=== PATIENT | male | born 1960 | race African-American/Black ===

== ENCOUNTER 2019-10-25 18:26 | Emergency (ER) | payer OTHER ==
--- NOTE | 2019-10-25 19:10 | ER Document Report ---
ED General - General Chief Complaint: Psych Problem Stated Complaint: DEPRESSION Time Seen by Provider: 10/25/19 18:51 TRAVEL OUTSIDE OF THE [place] IN LAST 30 DAYS: No - HPI Notes: Mr. Castañeda is a 58-year-old male presenting with a chief complaint of hopelessness and depression with suicidal ideation. Patient was seen earlier today at the [place] clinic and sent here under IVC petition taken out by them. This man is a [employer] with honorable discharge in the past. He reports a history of PTSD related to being accused of contributing to delinquency of a minor many years ago. His marriage of 30 years is currently in trouble. He is experiencing insomnia and difficulty concentrating. Patient has had thoughts about shooting himself. He has access to a firearm. Patient says he has had some visual hallucinations of people running across the room periodically. He denies any auditory hallucinations. He denies abuse of alcohol but says he does occasionally smoke marijuana. He admits that he used cocaine about 3 to 4 weeks ago but says he does not regularly abuse drugs. He denies any prior inpatient psychiatric admissions. Patient says he is somewhat anxious that the police are talking about him related to his prior legal charges. He denies any homicidal ideation. Pertinent prior history: History of hypertension. History of hyperlipidemia. Past history of CA prostate. Previous surgery for this. 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 HENT: Negative for sore throat. Eyes: Negative for visual changes. Cardiovascular: Negative for chest pain. Respiratory: Negative for shortness of breath. Gastrointestinal: Negative for abdominal pain, vomiting or diarrhea. Genitourinary: Negative for dysuria. Musculoskeletal: Negative for back pain. Skin: Negative for rash. Neurological: Negative for headaches, weakness or numbness. 10 point ROS negative except as marked above and in HPI. Physical Exam - Notes Notes: GENERAL: Well-developed well-nourished appearing in no acute distress. SKIN: Good turgor no rashes. HEAD: Normocephalic atraumatic. EYES: PERRLA. EOMI. Conjunctivae and sclerae clear. EARS: CANALS AND TMS CLEAR. NOSE: CLEAR. MOUTH: Moist mucosa. Good dentition. No stridor or edema. No drooling. NECK: Supple. No masses or thyromegaly. No adenopathy. Carotids 2+ without bruits. No JVD. BACK: Symmetrical without tenderness. CHEST: Respirations unlabored. Breath sounds clear and symmetrical. HEART: Regular rhythm. No murmur gallop or rub. ABDOMEN: Soft nontender without masses, organomegaly or rebound. Bowel sounds normally active. No bruits. GENITALIA: Deferred. EXTREMITIES: No edema. No calf tenderness. Cap refill less than 1.5 seconds. Dorsalis pedis and posterior tibial pulses 3+ and symmetrical. NEUROLOGICAL: GCS 15. Alert and oriented x3. Normal gait. Fluent speech. C ranial nerves II through XII intact. Sensorimotor and cerebellar normal. Normal tone. PSYCHIATRIC: Very flat affect and intermittently tearful Course - Re-evaluation Re-evalutation: 10/25/19 19:11 Patient is to remain under IVC at this time. We will obtain routine lab studies for medical clearance although I do not see any obvious acute medical issues with this gentleman. - Laboratory Result Diagrams: 10/25/19 19:00 10/25/19 19:00 Laboratory results interpreted by me: 10/25/19 10/25/19 10/25/19 18:45 19:00 19:00 WBC 14.7 H RDW 16.3 H Absolute Neuts (auto) 10.6 H Urine Blood MODERATE H Salicylates < 1.0 L Acetaminophen < 10 L Discharge - Discharge Clinical Impression: Suicidal ideation, Major depression with psychotic features, PTSD (post- traumatic stress disorder) Disposition: PSYCH HOSP/UNIT
[2019-10-25 19:47] LABS: ABSOLUTE EOSINOPHILS # (AUTO) 0.1 10^3/uL (0.0-0.6); ABSOLUTE LYMPHOCYTES (AUTO) 2.8 10^3/uL (0.5-4.7); ABSOLUTE MONOCYTES (AUTO) 1.1 10^3/uL (0.1-1.4); ABSOLUTE NEUT (AUTO) 10.6 10^3/uL (1.7-8.2); BASOPHILS % (AUTO) 0.3 % (0-2); EOSINOPHILS % (AUTO) 0.5 % (0-6); HEMATOCRIT 45.7 % (37.9-51.0); HEMOGLOBIN 15.3 g/dL (13.5-17.0); LYMPHOCYTES % (AUTO) 19.3 % (13-45); MEAN CORPUSCULAR HEMOGLOBIN 28.7 pg (27.0-33.4); MEAN CORPUSCULAR HGB CONC 33.5 g/dL (32.0-36.0); MEAN CORPUSCULAR VOLUME 86 fl (80-97); MONOCYTES % (AUTO) 7.6 % (3-13); PLATELET COUNT 278 10^3/uL (150-450); RED BLOOD COUNT 5.35 10^6/uL (4.35-5.55); RED CELL DISTRIBUTION WIDTH 16.3 % (11.5-14.0); SEGMENTED NEUTROPHILS % (AUTO) 72.3 % (42-78); TOTAL CELLS COUNTED % (AUTO) 100 %; WHITE BLOOD COUNT 14.7 10^3/uL (4.0-10.5)
[2019-10-25 20:06] LABS: ALBUMIN 4.7 g/dL (3.5-5.0); ALKALINE PHOSPHATASE 100 U/L (38-126); ANION GAP 12 (5-19); ASPARTATE AMINO TRANSFERASE 34 U/L (17-59); BILIRUBIN,DIRECT 0.1 mg/dL (0.0-0.4); BILIRUBIN,TOTAL 0.5 mg/dL (0.2-1.3); BLOOD UREA NITROGEN 16 mg/dL (7-20); CALCIUM 9.9 mg/dL (8.4-10.2); CARBON DIOXIDE 26 mmol/L (22-30); CHLORIDE 102 mmol/L (98-107); GLUCOSE 79 mg/dL (75-110); POTASSIUM 3.8 mmol/L (3.6-5.0); TOTAL PROTEIN 8.1 g/dL (6.3-8.2)
[2019-10-25 20:10] LABS: ACETAMINOPHEN < 10 ug/mL (10-30); ALCOHOL < 10 mg/dL (NONE DETECTED); SALICYLATE < 1.0 mg/dL (2.0-20.0)
[2019-10-25 20:11] LABS: APPEARANCE,URINE CLEAR; BILIRUBIN,URINE NEGATIVE (NEGATIVE); COLOR,URINE YELLOW; GLUCOSE, URINE NEGATIVE (NEGATIVE); KETONES,URINE NEGATIVE (NEGATIVE); LEUKOCYTE ESTERASE,URINE NEGATIVE (NEGATIVE); NITRITE,URINE NEGATIVE (NEGATIVE); PROTEIN,URINE NEGATIVE (NEGATIVE); URINE SPECIFIC GRAVITY 1.023; UROBILINOGEN,URINE NEGATIVE mg/dL (<2.0)
[2019-10-25 20:20] LABS: URINE AMPHETAMINES SCREEN NEGATIVE; URINE BARBITURATES SCREEN NEGATIVE; URINE BENZODIAZEPINES SCREEN NEGATIVE; URINE COCAINE SCREEN NEGATIVE; URINE METHADONE SCREEN NEGATIVE; URINE PHENCYCLIDINE SCREEN NEGATIVE
[2019-10-25 20:21] LABS: URINE MARIJUANA (THC) SCREEN UNCONFIRMED POSITIVE
--- NOTE | 2019-10-25 22:27 | EKG REPORT ---
SEVERITY:- ABNORMAL ECG - SINUS RHYTHM REPOL ABNRM, PROBABLE ISCHEMIA, DIFFUSE LEADS : Confirmed by: Masha Vázquez MD 25-Oct-2019 22:27:03
[2019-10-26] MEDS ORDERED: ZOLPIDEM TARTRATE 5 MG TABLET PO ONE (02:50)
--- NOTE | 2019-10-26 10:34 | ER Document Report ---
Doctor's Note Notes: Chart reviewed, patient medically cleared. Patient remains on IVC petition. Currently awaiting psych recommendation and disposition.
[2019-10-26] MEDS ORDERED: NAPROXEN 250 MG TABLET PO PRN (14:00)
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
[2019-10-26] MEDS: LOSARTAN POTASSIUM 50 MG TABLET PO SCH (16:12)
[2019-10-26] MEDS: HYDROCHLOROTHIAZIDE 25 MG TABLET PO SCH (16:12)
[2019-10-26] MEDS: AMLODIPINE BESYLATE 10 MG TABLET PO SCH (16:12)
[2019-10-26] MEDS: METOPROLOL SUCCINATE 25 MG TAB.SR.24H PO SCH (16:13)
[2019-10-26] MEDS: ASPIRIN 81 MG TABLET, ENT COATED PO SCH (16:13)
[2019-10-26] MEDS: NICOTINE 7 MG/24 HR PATCH.TD24 TD SCH (16:14)
[2019-10-26] MEDS ORDERED: (PENDING PHARMACY ID) (Naproxen [Naproxen] 500 MG) PO SCH (18:00)
[2019-10-26] MEDS: FUROSEMIDE 20 MG TABLET PO SCH (19:31)
[2019-10-26] MEDS ORDERED: OLANZAPINE 2.5 MG TABLET PO ONE (21:00)
[2019-10-26] MEDS: BUSPIRONE HCL 10 MG TABLET PO SCH (21:12)
[2019-10-26] MEDS: ATORVASTATIN CALCIUM 40 MG TABLET PO SCH (21:12)
[2019-10-26] MEDS: CLONIDINE HCL 0.1 MG TABLET PO SCH (21:14)
[2019-10-26] MEDS ORDERED: CLONIDINE HCL 0.1 MG TABLET PO PRN (22:00)
[2019-10-26] MEDS ORDERED: (PENDING PHARMACY ID) (Buspirone Hcl [Buspirone Hcl] 15 MG) PO SCH (22:00)
[2019-10-26] MEDS ORDERED: HYDROXYZINE PAMOATE 50 MG CAPSULE PO ONE (22:16)
[2019-10-27] MEDS: CLONIDINE HCL 0.1 MG TABLET PO SCH (03:39)
[2019-10-27] MEDS ORDERED: (PENDING PHARMACY ID) (Losartan/Hydrochlorothiazide [Losartan-Hctz 100-25 Mg Tab] 1 TAB) PO SCH (10:00)
[2019-10-27] MEDS ORDERED: (PENDING PHARMACY ID) (Rosuvastatin Calcium [Rosuvastatin Calcium] 20 MG) PO SCH (10:00)
[2019-10-27] MEDS: FUROSEMIDE 20 MG TABLET PO SCH ×2 (10:41→18:34)
[2019-10-27] MEDS: METOPROLOL SUCCINATE 25 MG TAB.SR.24H PO SCH (10:41)
[2019-10-27] MEDS: BUSPIRONE HCL 10 MG TABLET PO SCH ×2 (10:42→22:29)
[2019-10-27] MEDS: LOSARTAN POTASSIUM 50 MG TABLET PO SCH (10:43)
[2019-10-27] MEDS: ASPIRIN 81 MG TABLET, ENT COATED PO SCH (10:45)
[2019-10-27] MEDS: HYDROCHLOROTHIAZIDE 25 MG TABLET PO SCH (10:45)
[2019-10-27] MEDS: AMLODIPINE BESYLATE 10 MG TABLET PO SCH (10:46)
[2019-10-27] MEDS: NICOTINE 7 MG/24 HR PATCH.TD24 TD SCH (10:59)
[2019-10-27 16:41] LABS: ABSOLUTE BASOPHILS # (AUTO) 0.1 10^3/uL (0.0-0.2); ABSOLUTE EOSINOPHILS # (AUTO) 0.2 10^3/uL (0.0-0.6); ABSOLUTE LYMPHOCYTES (AUTO) 3.4 10^3/uL (0.5-4.7); ABSOLUTE MONOCYTES (AUTO) 1.1 10^3/uL (0.1-1.4); ABSOLUTE NEUT (AUTO) 7.9 10^3/uL (1.7-8.2); BASOPHILS % (AUTO) 0.9 % (0-2); EOSINOPHILS % (AUTO) 1.8 % (0-6); HEMOGLOBIN 15.9 g/dL (13.5-17.0); LYMPHOCYTES % (AUTO) 26.9 % (13-45); MEAN CORPUSCULAR HEMOGLOBIN 28.6 pg (27.0-33.4); MEAN CORPUSCULAR HGB CONC 33.8 g/dL (32.0-36.0); MEAN CORPUSCULAR VOLUME 85 fl (80-97); MONOCYTES % (AUTO) 8.7 % (3-13); PLATELET COUNT 279 10^3/uL (150-450); RED BLOOD COUNT 5.54 10^6/uL (4.35-5.55); RED CELL DISTRIBUTION WIDTH 16.5 % (11.5-14.0); SEGMENTED NEUTROPHILS % (AUTO) 61.7 % (42-78); TOTAL CELLS COUNTED % (AUTO) 100 %; WHITE BLOOD COUNT 12.8 10^3/uL (4.0-10.5)
[2019-10-27] MEDS ORDERED: CLONIDINE HCL 0.1 MG TABLET PO ONE (19:43)
--- NOTE | 2019-10-27 20:28 | ER Document Report ---
Doctor's Note Notes: 10/27/19 14:10 PHYSICAL EXAMINATION: GENERAL: Well-appearing and in no acute distress. HEAD: Atraumatic, normocephalic. EYES: sclera anicteric, conjunctiva are normal. ENT: nares patent. Moist mucous membranes. NECK: Normal range of motion, supple without lymphadenopathy LUNGS: CTAB and equal. No wheezes rales or rhonchi. HEART: Regular rate and rhythm without murmurs ABDOMEN: Soft, nontender, normal bowel sounds, no guarding. EXTREMITIES: Normal range of motion, no pitting edema. No cyanosis. NEUROLOGICAL: Cranial nerves grossly intact. Normal speech. PSYCH: Normal mood, normal affect. SKIN: Warm, Dry, normal turgor, no rashes or lesions noted Reviewed patient's diagnostic work-up, notes and vital signs. Patient appears medically stable for discharge or transfer pending mental health evaluation. Mental health team states that they are still trying to find placement. Patient does complain of insomnia and is requesting a sleep medication at this time. Patient advised that he can be offered something to help with his sleep later in the evening but not in the afternoon at this time.
[2019-10-27] MEDS: HYDROXYZINE PAMOATE 50 MG CAPSULE PO PRN (22:30)
[2019-10-27] MEDS: ATORVASTATIN CALCIUM 40 MG TABLET PO SCH (22:33)
--- NOTE | 2019-10-28 09:31 | PSYCHOLOGICAL NOTE ---
Psych Note - Psych Note Date seen by psych provider: 10/28/19 Time seen by psych provider: 09:30 Psych Note: Patient states he was becoming anxious with the lack of communication and "just sitting here." Patient was informed of the referral process and was informed disease case manager rn has been collaborating with the [facility] for placement. Patient expressed understanding. Patient verbalized a belief that he was being overmedicated with his blood pressure medications. Clinician informed medical team of his concerns. Clinician knows this patient personally. Diagnosis: Major depressive disorder per history provided by the [place] Medication recommendations per [facility]'s contracted psychiatrist Dr. Ben YANG are as follows continue home medications Decrease Buspar to 10MG, Q12 Scheduled Continue Vistaril 50MG, at bedtime Scheduled Add Zyprexa 2.5MG, twice a day NO Ambien or Lunesta Impression\\plan:Patient is recommended to continue under IVC. It is recommended that IVC be maintained. Placement with the [facility] is being sought. Medication recommendations have been provided. Plan is for patient to be transferred to [facility] on 10/29/2019. Patient was advised of process. Dr. Espinoza was consulted to care management of this patient; attending physicians in agreement with recommendations and disposition.
[2019-10-28] MEDS: BUSPIRONE HCL 10 MG TABLET PO SCH ×3 (10:19→21:16)
[2019-10-28] MEDS: HYDROXYZINE PAMOATE 50 MG CAPSULE PO PRN ×2 (10:20→21:16)
[2019-10-28] MEDS: ASPIRIN 81 MG TABLET, ENT COATED PO SCH (10:21)
[2019-10-28] MEDS: LOSARTAN POTASSIUM 50 MG TABLET PO SCH (10:21)
[2019-10-28] MEDS: METOPROLOL SUCCINATE 25 MG TAB.SR.24H PO SCH (10:22)
[2019-10-28] MEDS: AMLODIPINE BESYLATE 10 MG TABLET PO SCH (10:23)
[2019-10-28] MEDS: HYDROCHLOROTHIAZIDE 25 MG TABLET PO SCH (10:23)
[2019-10-28] MEDS: FUROSEMIDE 20 MG TABLET PO SCH ×2 (10:25→18:41)
[2019-10-28] MEDS: NICOTINE 7 MG/24 HR PATCH.TD24 TD SCH (10:26)
--- NOTE | 2019-10-28 12:24 | ER Document Report ---
Doctor's Note Notes: Met with Patient. He indicated he was feeling anxious and was [facility]. Discussed coping skills and the need for him to fully engage in the [facility] treatment plan that is put in place for him and to work cooperatively with the treatment team. Discussed the importance of focusing on the here and now and the goodness of today versus the past of which he has no control. Patient asked if he had medication on board for the evening and he was advised there was medications ordered. Patient was also advised his information was being reviewed by the [facility] for admission and we would advise him when the behavioral health team received any information about potential transfer. Patient was alert and oriented to person, place, time, and circumstance. Mood was anxious and depressed and he continued to endorse passive suicidal ideation, intent and plan. He denied homicidal ideation, intent or plan. He denied auditory / visual hallucinations and delusions were absent. Thought processes were linear, organized, and rational. Conversational speech was within normal limits for rate, tone, and prosody. Eye contact was fair. Attention and concentration was fair. Insight, judgment, and impulse control was poor. Impression/ Plan. Patient is recommended to continue under IVC. He remains pass ively suicidal and depressed. He is recommended for transfer to an inpatient facility [facility]e. [facility]) for continued treatment and care. ED Physician in agreement with recommendations and disposition. 10/27/19 19:06
[2019-10-28] MEDS: OLANZAPINE 2.5 MG TABLET PO SCH ×2 (12:37→18:42)
--- NOTE | 2019-10-28 19:22 | ER Document Report ---
Doctor's Note Notes: 10/28/19 19:22 late addition. Patient evaluated. Patient without any complaints however feels like he is taking blood pressure medicine while here in the ER. Review of vitals show mildly hypertensive patient. Patient is nontoxic, well-appearing.
[2019-10-28] MEDS: ATORVASTATIN CALCIUM 40 MG TABLET PO SCH (21:16)
[2019-10-29 06:14] VITALS: BP 141/83
--- NOTE | 2019-10-29 08:45 | ER Document Report ---
Doctor's Note Notes: 10/29/19 08:25 Pt evaluated. Patient's vital signs currently reassuring. Per psych team patient to be transferred to [facility] for further evaluation. Patient nontoxic, well-appearing.
[2019-10-29] MEDS: AMLODIPINE BESYLATE 10 MG TABLET PO SCH (09:02)
[2019-10-29] MEDS: BUSPIRONE HCL 10 MG TABLET PO SCH (09:02)
[2019-10-29] MEDS: FUROSEMIDE 20 MG TABLET PO SCH (09:02)
[2019-10-29] MEDS: ASPIRIN 81 MG TABLET, ENT COATED PO SCH (09:02)
[2019-10-29] MEDS: LOSARTAN POTASSIUM 50 MG TABLET PO SCH (09:02)
[2019-10-29] MEDS: HYDROCHLOROTHIAZIDE 25 MG TABLET PO SCH (09:02)
[2019-10-29] MEDS: OLANZAPINE 2.5 MG TABLET PO SCH (09:02)
[2019-10-29] MEDS: METOPROLOL SUCCINATE 25 MG TAB.SR.24H PO SCH (09:02)
== END 2019-10-29 08:45 ==
LOC: ER 18:26 → EDBD 18:26 → ER 10-29 08:45
DX: R45.851 Suicidal ideations (principal); F32.9 Major depressive disorder, single episode, unspecified; F43.10 Post-traumatic stress disorder, unspecified; R44.1 Visual hallucinations; F12.90 Cannabis use, unspecified, uncomplicated; F14.90 Cocaine use, unspecified, uncomplicated; F41.9 Anxiety disorder, unspecified; I10 Essential (primary) hypertension
CPT/HCPCS: 93005; 99285; 36415; 80307 ×4; 85025; 80053; 81001; 93010; J3490 ×3